=== PATIENT | female | born 1960 | race Caucasian/White ===

== ENCOUNTER 2019-07-04 11:56 | Day surgery (SDC) | payer BC, MEDICAID ==
[~2019-07-04] VITALS: Ht 165.1 cm; Wt 87.7 kg
[~2019-07-04 11:56] MED LIST: AMLO2.5T4 PO; ASPI-556 PO; BUME1TAB34 PO; HYDR-2924 PO; HYDR25TA84 PO; INSU100I24 SQ; LOSA-88 PO; NIFE-64 PO; ONDA-104 PO; SEVE800T17 PO; SIMV-261 PO
[2019-07-04] MEDS ORDERED: SODIUM CHLORIDE 0.9% 1,000 ML IV ONE (12:00)
[2019-07-04] MEDS ORDERED: PROPOFOL 1% 20 ML VIAL IVP ONE (12:00)
[2019-07-04] MEDS ORDERED: LIDOCAINE 1% 10 ML VIAL INJ ONE (12:00)
[2019-07-04 13:24] LABS: GLUCOMETER DEV NAME(LOC) SDS.; GLUCOSE,POINT OF CARE 156 MG/DL (70-110)
[2019-07-04] MEDS ORDERED: ALBUTEROL SULFATE 2.5 MG/0.5 ML NEB SOLUTION NEB STA (14:28)
== END 2019-07-04 15:15 | disposition home or self-care (01) ==
LOC: SURGERY 11:56
PROVIDERS: ATTEND Student in an Organized Health Care Education/Training Program
DX: R11.2 Nausea with vomiting, unspecified (principal); K29.50 Unspecified chronic gastritis without bleeding; K31.89 Other diseases of stomach and duodenum; K26.9 Duodenal ulcer, unspecified as acute or chronic, without hemorrhage or perforation; K44.9 Diaphragmatic hernia without obstruction or gangrene; K25.9 Gastric ulcer, unspecified as acute or chronic, without hemorrhage or perforation; I10 Essential (primary) hypertension; I25.2 Old myocardial infarction; E11.22 Type 2 diabetes mellitus with diabetic chronic kidney disease; N18.6 End stage renal disease; Z79.899 Other long term (current) drug therapy
CPT/HCPCS: 43239; 82962; C1769; J2704; J3490; 88305; 88312; 88313

== ENCOUNTER 2020-01-24 10:34 | Day surgery (SDC) | payer BC, MEDICAID ==
[~2020-01-24] VITALS: Ht 156.2 cm; Wt 92.3 kg
[~2020-01-24 10:34] MED LIST changes: -AMLO2.5T4 PO; +AMLO2.5T96 PO; -LOSA-88 PO; +LOSA50TA37 PO; +SODIUM CHLORIDE 0.9% 1,000 ML IV ONE
[2020-01-24] MEDS ORDERED: LIDOCAINE/PF 2% 5 ML SYRINGE IVP ONE (10:35)
[2020-01-24] MEDS ORDERED: PROPOFOL 1% 20 ML VIAL IVP ONE (10:35)
[2020-01-24] MEDS ORDERED: CARV25TA32 PO (11:31)
[2020-01-24] MEDS ORDERED: OMEP20CA12 PO (11:34)
[2020-01-24] MEDS ORDERED: CALC667C PO (11:34)
[2020-01-24 11:40] LABS: GLUCOMETER DEV NAME(LOC) SDS.; GLUCOSE,POINT OF CARE 148 MG/DL (70-110)
== END 2020-01-24 14:20 | disposition home or self-care (01) ==
LOC: SURGERY 10:34
PROVIDERS: ATTEND Student in an Organized Health Care Education/Training Program
DX: K26.9 Duodenal ulcer, unspecified as acute or chronic, without hemorrhage or perforation (principal); K21.9 Gastro-esophageal reflux disease without esophagitis; K44.9 Diaphragmatic hernia without obstruction or gangrene; K29.50 Unspecified chronic gastritis without bleeding; E78.00 Pure hypercholesterolemia, unspecified; E11.22 Type 2 diabetes mellitus with diabetic chronic kidney disease; N18.6 End stage renal disease; K31.89 Other diseases of stomach and duodenum; Z90.710 Acquired absence of both cervix and uterus; Z98.890 Other specified postprocedural states
CPT/HCPCS: 43239; 82962; 87426; 88305; 88312; 88313; C1769; J2704; J3490

== ENCOUNTER 2023-09-15 14:32 | Inpatient (IN) | payer MEDICARE, MEDICAID ==
[~2023-09-15] VITALS: Ht 167.6 cm; Wt 86.0 kg
[~2023-09-15 14:32] MED LIST changes: -BUME1TAB34 PO; +CALC667C PO; +CARV25TA32 PO; -HYDR-2924 PO; -HYDR25TA84 PO; -LOSA50TA37 PO; -NIFE-64 PO; +OMEP20CA12 PO; -ONDA-104 PO; -SEVE800T17 PO; -SODIUM CHLORIDE 0.9% 1,000 ML IV ONE
[2023-09-15] MEDS ORDERED: AMLO10TA55 PO (14:44)
[2023-09-15] MEDS ORDERED: BUME2TAB34 PO (14:44)
[2023-09-15] MEDS ORDERED: ASPI-1450 PO (14:44)
[2023-09-15] MEDS ORDERED: ATOR40TA71 PO (14:44)
[2023-09-15] MEDS ORDERED: IPRA4AER IH (14:44)
[2023-09-15] MEDS ORDERED: SITA25 PO (14:44)
[2023-09-15] MEDS ORDERED: FOLI0.8T22 PO (14:44)
[2023-09-15] MEDS ORDERED: FAMO20 PO (14:44)
[2023-09-15 15:11] LABS: BASOPHILS % (AUTO) 0.9 % (0.0-2.0); HEMATOCRIT 37.5 % (36-46); HEMOGLOBIN 12.5 g/dL (12.0-16.0); LYMPHOCYTES # (AUTO) 0.9 K/uL (1.0-4.8); LYMPHOCYTES % (AUTO) 10.8 % (22.0-44.0); MEAN CORPUSCULAR HEMOGLOBIN 32.2 pg (26.0-34.0); MEAN CORPUSCULAR HGB CONC 33.4 G/dL (31.0-37.0); MEAN CORPUSCULAR VOLUME 96 fL (80-100); MONOCYTES # (AUTO) 0.6 K/uL (0.1-1.0); MONOCYTES % (AUTO) 7.1 % (2.0-9.0); NEUTROPHILS % (AUTO) 75.2 % (40.0-70.0); PLATELET COUNT (AUTO) 135 K/uL (150-450); RED BLOOD CELL COUNT(AUTO) 3.89 MIL/uL (4.00-5.20); RED CELL DISTRIBUTION WIDTH 15.1 % (11.5-14.5); WHITE BLOOD COUNT (AUTO) 7.9 K/uL (4.5-11.0)
[2023-09-15 15:17] LABS: CALCIUM, TOTAL 7.9 mg/dL (8.8-10.5); CREATININE 15.7 mg/dL (0.60-1.30); POTASSIUM 4.1 mmol/L (3.5-5.1)
[2023-09-15] MEDS: ASPIRIN 81 MG CHEWABLE TABLET PO ONE (15:22)
[2023-09-15 15:23] LABS: ALBUMIN 2.9 g/dL (3.4-5.0); BILIRUBIN,TOTAL 0.5 mg/dL (0.1-1.0)
[2023-09-15 15:25] LABS: TROPONIN I-HIGH SENSITIVITY 49 ng/L (<51)
[2023-09-15 15:30] LABS: PROTHROMBIN TIME 10.6 SEC (9.4-11.6)
[2023-09-15] MEDS: NITROGLYCERIN 0.4 MG SUBLINGUAL TABLET #25 SL ONE (16:48)
[2023-09-15 19:16] LABS: COVID AG,FIA SOURCE NASAL SWAB
[2023-09-15 19:59] LABS: SARS-COV2 (COVID) ANTIGEN,FIA Negative (Negative)
[2023-09-15 20:36] VITALS: BP 163/84; PULSE 81; RESP 18; TEMP 98
[2023-09-15] MEDS ORDERED: ZOLPIDEM TARTRATE 5 MG TABLET PO PRN (21:15)
[2023-09-15] MEDS ORDERED: ALBUTEROL SULFATE 2.5 MG/0.5 ML NEB SOLUTION NEB PRN (21:15)
[2023-09-15] MEDS ORDERED: ACETAMINOPHEN 325 MG TABLET PO PRN (21:15)
[2023-09-15] MEDS ORDERED: MAGNESIUM HYDROXIDE SUSPENSION 30 ML UDCUP PO PRN (21:15)
[2023-09-15] MEDS ORDERED: IPRATROPIUM BROMIDE 0.5 MG/2.5 ML NEB SOLUTION NEB PRN (21:15)
[2023-09-15] MEDS ORDERED: ONDANSETRON HCL 4 MG/2 ML VIAL IVP PRN (21:15)
[2023-09-15] MEDS ORDERED: BISACODYL 10 MG RECTAL RECTAL SUPPOSITORY PR PRN (21:15)
[2023-09-15] MEDS: HEPARIN SODIUM,PORCINE 5,000 UNITS/ML VIAL SQ SCH (21:53)
[2023-09-15] MEDS: BUMETANIDE 0.25 MG/ML 4 ML VIAL IVP ONE (22:13)
[2023-09-16] VITALS (10 sets, daily range): BP systolic 91–157; BP diastolic 52–84; PULSE 74–84; RESP 18–19; TEMP 97.7–98.3
[2023-09-16 03:51] LABS: GLUCOMETER DEV NAME(LOC) 5N.1D; GLUCOSE,POINT OF CARE 191 MG/DL (70-110)
[2023-09-16 05:51] LABS: GLUCOMETER DEV NAME(LOC) 5N.1D; GLUCOSE,POINT OF CARE 169 MG/DL (70-110)
[2023-09-16] MEDS: FOLIC ACID/VIT B COMPLEX AND C TABLET PO SCH (08:31)
[2023-09-16] MEDS: HYDROCODONE/ACETAMINOPHEN 5-325 MG TABLET PO PRN (08:31)
[2023-09-16] MEDS: ASPIRIN 81 MG CHEWABLE TABLET PO SCH (08:31)
[2023-09-16] MEDS: PANTOPRAZOLE SODIUM 40 MG/VIAL IVP SCH (08:31)
[2023-09-16] MEDS: DOCUSATE SODIUM 100 MG CAPSULE PO SCH (08:31)
[2023-09-16] MEDS: CALCIUM ACETATE 667 MG CAPSULE PO SCH ×2 (08:31→17:47)
[2023-09-16] MEDS: SitaGLIPtin PHOSPHATE 25 MG TABLET PO SCH (08:31)
[2023-09-16] MEDS: ATORVASTATIN CALCIUM 40 MG TABLET PO SCH (08:31)
[2023-09-16] MEDS: AmLODIPine BESYLATE 10 MG TABLET PO SCH (08:32)
[2023-09-16] MEDS: BUMETANIDE 1 MG TABLET PO SCH (08:32)
[2023-09-16] MEDS: FAMOTIDINE 20 MG TABLET PO SCH (08:32)
[2023-09-16] MEDS: CARVEDILOL 25 MG TABLET PO SCH (08:32)
[2023-09-16] MEDS ORDERED: INSULIN DEGLUDEC SQ SCH (09:00)
[2023-09-16] MEDS: MORPHINE SULFATE 2 MG/ML SYRINGE IVP PRN (10:52)
[2023-09-16] MEDS ORDERED: SUCR500T PO (11:09)
[2023-09-16] MEDS ORDERED: REGADENOSON 0.4 MG/5 ML PF SYRINGE IVP ONE (12:00)
[2023-09-16] MEDS ORDERED: SESTAMIBI TC99M/UD ISOTOPE 1 EA INJ INJ ONE ×2 (12:05→15:20)
[2023-09-16 15:22] LABS: TROPONIN I-HIGH SENSITIVITY 49 ng/L (<51)
[2023-09-16] MEDS: REGADENOSON 0.4 MG/5 ML PF SYRINGE IVP ONE (15:49)
[2023-09-16] MEDS ORDERED: SIMVASTATIN 40 MG TABLET PO SCH (21:00)
[2023-09-17 00:11] VITALS: BP 138/65; PULSE 74; RESP 18; TEMP 98.1
[2023-09-17 04:26] VITALS: BP 132/59; PULSE 71; RESP 18; TEMP 97.9
[2023-09-17 06:05] LABS: BASOPHILS % (AUTO) 0.9 % (0.0-2.0); EOSINOPHILS % (AUTO) 7.8 % (1.0-6.0); HEMATOCRIT 32.3 % (36-46); HEMOGLOBIN 10.8 g/dL (12.0-16.0); LYMPHOCYTES # (AUTO) 0.7 K/uL (1.0-4.8); LYMPHOCYTES % (AUTO) 12.4 % (22.0-44.0); MEAN CORPUSCULAR HEMOGLOBIN 32.1 pg (26.0-34.0); MEAN CORPUSCULAR HGB CONC 33.5 G/dL (31.0-37.0); MEAN CORPUSCULAR VOLUME 96 fL (80-100); MONOCYTES # (AUTO) 0.6 K/uL (0.1-1.0); MONOCYTES % (AUTO) 9.8 % (2.0-9.0); NEUTROPHILS # (AUTO) 4.1 K/uL (1.8-7.7); NEUTROPHILS % (AUTO) 69.1 % (40.0-70.0); PLATELET COUNT (AUTO) 114 K/uL (150-450); RED BLOOD CELL COUNT(AUTO) 3.37 MIL/uL (4.00-5.20); RED CELL DISTRIBUTION WIDTH 15.1 % (11.5-14.5)
[2023-09-17 06:26] LABS: ALBUMIN 2.5 g/dL (3.4-5.0); BILIRUBIN,TOTAL 0.3 mg/dL (0.1-1.0); CALCIUM, TOTAL 7.9 mg/dL (8.8-10.5); CREATININE 15.78 mg/dL (0.60-1.30); POTASSIUM 3.5 mmol/L (3.5-5.1); TOTAL PROTEIN, SERUM 5.6 g/dL (6.4-8.2)
[2023-09-17 08:08] VITALS: BP 150/57; PULSE 73; RESP 18; TEMP 98
[2023-09-17] MEDS: LOSARTAN POTASSIUM 25 MG TABLET PO SCH (10:08)
[2023-09-17 12:04] VITALS: BP 129/75; PULSE 73; RESP 18; TEMP 98.1
[2023-09-17] MEDS ORDERED: LOSA-417 PO (15:17)
[2023-09-17 15:20] VITALS: BP 130/79; PULSE 74; RESP 18; TEMP 98
== END 2023-09-17 17:05 | disposition home or self-care (01) | DRG 291 ==
LOC: EMS 15:02 → 5N 17:03
PROVIDERS: ADMIT Hospitalist; ATTEND Hospitalist
PROC: 3E1M39Z Irrigation of Peritoneal Cavity using Dialysate, Percutaneous Approach (ICD-10-PCS; principal; 2023-09-16)
DX: I13.2 Hypertensive heart and chronic kidney disease with heart failure and with stage 5 chronic kidney disease, or end stage renal disease (principal); I50.43 Acute on chronic combined systolic (congestive) and diastolic (congestive) heart failure; N18.6 End stage renal disease; E87.1 Hypo-osmolality and hyponatremia; N25.81 Secondary hyperparathyroidism of renal origin; E11.22 Type 2 diabetes mellitus with diabetic chronic kidney disease; E78.5 Hyperlipidemia, unspecified; I34.0 Nonrheumatic mitral (valve) insufficiency; I25.10 Atherosclerotic heart disease of native coronary artery without angina pectoris; D63.1 Anemia in chronic kidney disease; Z20.822 Contact with and (suspected) exposure to COVID-19; E83.39 Other disorders of phosphorus metabolism; Z79.82 Long term (current) use of aspirin; Z79.899 Other long term (current) drug therapy; Z99.2 Dependence on renal dialysis; Z95.1 Presence of aortocoronary bypass graft; Z79.4 Long term (current) use of insulin
CPT/HCPCS: 71045; 78452; 80053; 82962; 83880; 84484; 85025; 85610; 85730; 90945; 93005; 93306; 99285; A9500; C9113; J1644; J2270; J2785; J3490; 36415-L1; 36415-TC